=== PATIENT | male | born 1980 | race Caucasian/White ===

== ENCOUNTER 2019-09-16 11:29 | Emergency (ER) | payer OTHER ==
[~2019-09-16] VITALS: Ht 180.3 cm; Wt 103.4 kg
[2019-09-16] MEDS ORDERED: COZAAR25 MG (11:53)
[2019-09-16] MEDS ORDERED: TOPROL XL25 M1 (11:54)
== END 2019-09-16 14:48 | disposition home or self-care (01) ==
LOC: ER 11:29
DX: R42 Dizziness and giddiness (principal)